=== PATIENT | female | born 1950 | race Caucasian/White ===

== ENCOUNTER 2016-12-29 20:18 | Emergency (ER) | payer MEDICARE ==
[~2016-12-29 20:18] MED LIST: ALBU1AER INH; LISI-360 PO; LOVA1TAB47 PO; METF1000 PO; METO25 PO; OMEP20CA5 PO; ZOFR4TAB3 SL
[2016-12-29 20:22] VITALS: BP 138/77; PULSE 111; RESP 16; TEMP 100.5; O2SAT 95
== END 2016-12-29 21:59 | disposition left against medical advice (07) ==
LOC: NED 20:18
DX: R11.10 Vomiting, unspecified (principal); Z53.21 Procedure and treatment not carried out due to patient leaving prior to being seen by health care provider
CPT/HCPCS: 99281

== ENCOUNTER 2017-08-17 06:29 | Day surgery (SDC) | payer MEDICARE ==
[~2017-08-17] VITALS: Ht 157.5 cm; Wt 61.4 kg
[2017-08-17 06:45] VITALS: BP 179/92; PULSE 84; RESP 20; TEMP 98.1; O2SAT 97
[2017-08-17] MEDS ORDERED: METF500T PO (06:49)
[2017-08-17] MEDS ORDERED: ONDA8TAB7 PO (06:49)
[2017-08-17] MEDS ORDERED: LISI10TA3 PO (06:49)
[2017-08-17] MEDS ORDERED: LEVO25TA4 PO (06:49)
[2017-08-17] MEDS ORDERED: LOVA20TA PO (06:49)
[2017-08-17] MEDS ORDERED: OMEP20TA93 PO (06:49)
[2017-08-17] MEDS ORDERED: METO25TA3 PO (06:49)
[2017-08-17] MEDS ORDERED: SODIUM CHLORIDE 0.9% 1000 ML IV SCH (07:00)
[2017-08-17] MEDS ORDERED: ceFAZolin 2 GM PREMIX 50 ML - implanted port removal IV SCH (07:00)
[2017-08-17] MEDS ORDERED: LIDOCAINE 1%/EPINEPHrine 1:100,000 SOLN 30 ML VIAL ONE (08:23)
[2017-08-17] MEDS ORDERED: MIDAZOLAM HCL 2 MG/2 ML VIAL ONE (08:30)
[2017-08-17] MEDS ORDERED: fentaNYL CITRATE 250 MCG/5 ML AMP ONE (08:30)
[2017-08-17 09:25] VITALS: BP 146/78; PULSE 84; RESP 20; TEMP 98.4; O2SAT 93
--- NOTE | 2017-08-17 09:26 | PD.RAD ---
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
[2017-08-17] MEDS ORDERED: SODIUM CHLORIDE 0.9% FLUSH 10 ML FLUSH IVF PRN (09:30)
[2017-08-17 09:40] VITALS: BP 146/70; PULSE 92; RESP 20; O2SAT 98
[2017-08-17 10:10] VITALS: BP 132/79; PULSE 83; RESP 20; O2SAT 95
[2017-08-17 10:40] VITALS: BP 125/74; PULSE 86; RESP 20; O2SAT 97
--- NOTE | 2017-08-17 15:50 | RADRPT ---
EXAM DATE/TIME: 08/17/2017 00:00 [facility] COMPARISON: No previous studies available for comparison. INDICATIONS : Patient presents with a history of ovarian cancer in need of port removal for culture due to possible infection. MEDICAL HISTORY : DM Hx of ovarian cancer Asthma Arthritis Diverticulitis HTN Hypothyroidism GERD SURGICAL HISTORY : Port placement Hernia repair Colon resection ENCOUNTER: Subsequent ACUITY: > 1 year PAIN SCORE: 0/10 LOCATION: N/A SEDATION TIME: 30 minutes 1.) 3 mg midazolam (Versed) IV 2.) 150 mcg fentanyl (Sublimaze) IV Prophylactic antibiotics were administered with appropriate pre-procedure timing. Vancomycin within 2 hrs of procedure, Ancef (or alternative) within 1 hr of procedure. PROCEDURE : 1. Removal of Jbeaaf-i-bhuc. 2. Conscious sedation with continuous EKG and oximetry monitoring. The risk, benefits and potential complications of Timxam-w-Hajy removal were discussed. Written conse nt was obtained. The patient was placed supine. The chest wall was prepped in sterile fashion. Full sterile techniqu e was used, including cap, mask, sterile gloves and gown, and a large sterile sheet. Hand hygiene an d 2% chlorhexidine and/or Betadine/alcohol prep was utilized per protocol for cutaneous antisepsis. The skin and subcutaneous tissues were infiltrated with local anesthetic solution. A small incision w as made, the subcutaneous pocket was opened. The port was dissected from the subcutaneous tissues and easily removed in one piece. The pocket incision was closed with subcuticular Vicryl suture. Steri -Strips were applied. Conscious sedation was performed with the prescribed dosages and duration as above in the presence of an independent trained radiology nurse to assist in the monitoring of the patient. EKG and oximetry remained stable throughout the procedure. The patient tolerated the procedure well and there were no complications. The patient was sent to post anesthesia recovery in stable condition. CONCLUSION: Uncomplicated port removal as above. Ramirez Ames MD on August 17, 2017 at 14:53 Board Certified Radiologist. This report was verified electronically.
== END 2017-08-17 11:15 | disposition home or self-care (01) ==
LOC: HROP 06:29 → HRIP 06:32 → HROP 11:15
PROVIDERS: ATTEND Obstetrics & Gynecology Gynecologic Oncology
DX: Z45.2 Encounter for adjustment and management of vascular access device (principal); C56.9 Malignant neoplasm of unspecified ovary; J45.909 Unspecified asthma, uncomplicated; K57.92 Diverticulitis of intestine, part unspecified, without perforation or abscess without bleeding; I10 Essential (primary) hypertension; E11.9 Type 2 diabetes mellitus without complications; K21.9 Gastro-esophageal reflux disease without esophagitis
CPT/HCPCS: 36590; 87070; 99152; 99153; J0690; J2250; J3010; J7030

== ENCOUNTER 2017-08-31 06:13 | Day surgery (SDC) | payer MEDICARE ==
[~2017-08-31] VITALS: Ht 157.5 cm; Wt 60.0 kg
[~2017-08-31 06:13] MED LIST changes: -ALBU1AER INH; +LEVO25TA4 PO; -LISI-360 PO; +LISI10TA3 PO; -LOVA1TAB47 PO; +LOVA20TA PO; -METF1000 PO; +METF500T PO; -METO25 PO; +METO25TA3 PO; -OMEP20CA5 PO; +OMEP20TA93 PO; +ONDA8TAB7 PO; -ZOFR4TAB3 SL
[2017-08-31 06:41] VITALS: BP 175/100; PULSE 80; RESP 20; TEMP 97.7; O2SAT 97
[2017-08-31 07:20] LABS: AUTOMATED NEUTROPHIL # 2.6 TH/MM3 (1.8-7.7); BASOPHIL % 0.9 % (0.0-2.0); EOSINOPHIL # 0.5 TH/MM3 (0-0.4); EOSINOPHIL % 9.5 % (0.0-4.0); HEMATOCRIT 31.3 % (35.0-46.0); HEMOGLOBIN 10.4 GM/DL (11.6-15.3); LYMPH % 24.2 % (9.0-44.0); LYMPHOCYTE # 1.2 TH/MM3 (1.0-4.8); MEAN CELL VOLUME 81.4 FL (80.0-100.0); MEAN CORPUSCULAR HEMOGLOBIN 27.1 PG (27.0-34.0); MEAN CORPUSCULAR HGB CONC 33.3 % (32.0-36.0); MEAN PLATELET VOLUME 7.9 FL (7.0-11.0); MONOCYTE # 0.6 TH/MM3 (0-0.9); NEUT % 53.4 % (16.0-70.0); PLATELET COUNT 164 TH/MM3 (150-450); RED BLOOD COUNT 3.84 MIL/MM3 (4.00-5.30); RED CELL DISTRIBUTION WIDTH 17.8 % (11.6-17.2); WHITE BLOOD COUNT 4.8 TH/MM3 (4.0-11.0)
[2017-08-31] MEDS ORDERED: VANCOMYCIN HCL 1000 MG VIAL ONE (07:26)
[2017-08-31] MEDS ORDERED: SODIUM CHLOR 0.9% 250 ML INJ 250 ML ONE (07:26)
[2017-08-31 07:29] LABS: INTERNATIONAL NORMALIZED RATIO 1.1 RATIO; PROTHROMBIN TIME - PATIENT 11.1 SEC (9.8-11.6)
[2017-08-31] MEDS ORDERED: CHLORHEXIDINE GLUCONATE 2 % 1 PACK (2 CLOTHS) TOPICAL SCH (07:30)
[2017-08-31] MEDS ORDERED: POVIDONE IODINE 5% (ANTISEPSIS KIT) 4 APPLICATIONS EACH NARE SCH (07:30)
[2017-08-31] MEDS ORDERED: VANCOMYCIN 1000 MG/NS 250 ML - implanted port/tunneled catheter IV SCH ×2 (07:30)
[2017-08-31] MEDS ORDERED: ceFAZolin 2 GM PREMIX 50 ML - implanted port/tunneled catheter insertion IV SCH (07:30)
[2017-08-31] MEDS ORDERED: SODIUM CHLORIDE 0.9% 1000 ML IV SCH (07:30)
[2017-08-31] MEDS ORDERED: fentaNYL CITRATE 250 MCG/5 ML AMP ONE (07:40)
[2017-08-31] MEDS ORDERED: MIDAZOLAM HCL 2 MG/2 ML VIAL ONE (07:40)
[2017-08-31] MEDS ORDERED: LIDOCAINE 1%/EPINEPHrine 1:100,000 SOLN 30 ML VIAL ONE (07:55)
--- NOTE | 2017-08-31 09:12 | PD.RAD ---
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
[2017-08-31 09:15] VITALS: BP 156/78; PULSE 92; RESP 18; TEMP 98; O2SAT 97
--- NOTE | 2017-08-31 09:28 | RADRPT ---
EXAM DATE/TIME: 08/31/2017 07:49 [facility] COMPARISON: No previous studies available for comparison. INDICATIONS : Patient presents with ovarion cancer in need of port placement for chemotherapy. Left sided Infuse-a- Port will be placed secondary to recent removal of suspected infected port on the right side. MEDICAL HISTORY : DM Hx of ovarian cancer Asthma Arthritis Diverticulitis HTN Hypothyroidism GERD SURGICAL HISTORY : Port placement Hernia repair Colon resection ENCOUNTER: Initial ACUITY: >1 year PAIN SCORE: 0/10 FLUORO TIME: 0.6 minutes IMAGE SERIES: 1 SEDATION TIME: 30 minutes ACCESS: Left internal jugular vein SEDATION: 1.) 3.5 mg midazolam (Versed) IV 2.) 200 mcg fentanyl (Sublimaze) IV Prophylactic antibiotics were administered with appropriate pre-procedure timing. Vancomycin within 2 hours of procedure, Ancef (or alternative) within 1 hour of procedure. DEVICE: 1. 8 [place] single lumen cm [id number]-l-blgc PROCEDURE : 1. Continuous pulse oximetry and EKG monitoring. 2. Intravenous conscious sedation. 3. Ultrasound guidance for venous access. 4. Fluoroscopic guided implantable central venous port placement. The patient was placed supine. The neck was prepped in sterile fashion. Full sterile technique was u sed, including cap, mask, sterile gloves and gown, and a large sterile sheet. Hand hygiene and 2% ch lorhexidine Betadine was utilized per protocol for cutaneous antisepsis with appropriate dry time for site. Sterile gel and sterile probe cover were utilized for ultrasound guidance. The skin and sub cutaneous tissues were infiltrated with local anesthetic solution. Under direct ultrasound guidance, central venous access was accomplished in the targeted vessel. The ultrasound images depicting access guidance were stored and saved to PACS for permanent record. A s ubcutaneous pocket was created using blunt dissection. The port was introduced to the pocket. The c atheter tubing was fed through a subcutaneous tunnel to the venotomy site. The catheter tubing was c ut to a suitable length and then was introduced through a valved Peel-Away sheath and positioned with catheter tubing tip at the cavo-atrial junction level. The pocket incision was closed with subcutic ular Vicryl suture. Steri-Strips were applied. The port was flushed and locked with heparin solutio n per protocol. Sterile dressing was applied to the site. The patient tolerated the procedure well. Conscious sedation was performed with the prescribed dosages and duration as above in the presence of an independent trained radiology nurse to assist in the monitoring of the patient. EKG and oximetry remained stable throughout the procedure. The patient tolerated the procedure well and there were no complications. The patient was sent to post anesthesia recovery in stable condition. CONCLUSION: Uncomplicated ultrasound and fluoroscopic guided implanted central venous port catheter placement as described in detail above. An 8 [place] Power port was placed. Jules Gordon MD on August 31, 2017 at 9:26 Board Certified Radiologist. This report was verified electronically.
[2017-08-31 09:30] VITALS: BP 144/91; PULSE 88; RESP 18; O2SAT 98
[2017-08-31 10:00] VITALS: BP 140/85; PULSE 86; RESP 18; O2SAT 95
[2017-08-31 10:30] VITALS: BP 130/74; PULSE 80; RESP 18; O2SAT 96
== END 2017-08-31 11:15 | disposition home or self-care (01) ==
LOC: HRIP 06:13 → HROP 06:13
PROVIDERS: ATTEND Obstetrics & Gynecology Gynecologic Oncology
DX: Z45.2 Encounter for adjustment and management of vascular access device (principal); C56.9 Malignant neoplasm of unspecified ovary; I10 Essential (primary) hypertension; J45.909 Unspecified asthma, uncomplicated; E03.9 Hypothyroidism, unspecified; E11.9 Type 2 diabetes mellitus without complications; K21.9 Gastro-esophageal reflux disease without esophagitis; Z79.84 Long term (current) use of oral hypoglycemic drugs
CPT/HCPCS: 36561; 76937; 77001; 85025; 85610; 85730; 99152; 99153; C1788; J0690; J1642; J2250; J3010; J3370; J7030; J7050